=== PATIENT | female | born 1960 | race Two or more races ===

== ENCOUNTER 2020-03-19 02:52 | Emergency (ER) | payer MEDICAID, OTHER ==
[~2020-03-19] VITALS: Ht 165.1 cm; Wt 79.8 kg
[2020-03-19 03:59] LABS: Basophils # (auto) 0 10 ^3/uL (0-0.2); Basophils % (auto) 0.2 % (0.0-2.0); Eosinophils # (auto) 0 10 ^3/uL (0-0.8); Eosinophils % (auto) 0.5 % (0.0-7.0); Hematocrit 40.4 % (36.0-46.0); Hemoglobin 13.1 g/dL (12.2-16.2); Lymphocytes # (auto) 1.4 10 ^3/uL (0.4-5.4); Mean Corpuscular Hemoglobin 26.8 pg (28.0-32.0); Mean Corpuscular Hgb Conc. 32.5 g/dL (32.0-36.0); Mean Corpuscular Volume 82.4 fL (80.0-100.0); Monocytes # (auto) 0.5 10 ^3/uL (0-1.3); Monocytes % (auto) 6.2 % (0.0-12.0); Neutrophils # (auto) 6.7 10 ^3/uL (1.6-8.6); Neutrophils % (auto) 77.1 % (37.0-80.0); Nucleated Red Blood Cells % 0.1 %; Platelet Count (auto) 245 10^3/uL (140-450); Red Cell Distribution Width 13.7 % (11.8-14.3); White Blood Cell 8.7 10^3/uL (4.4-10.8)
[2020-03-19] MEDS ORDERED: levoFLOXacin 750MG 150 ML IV ONE (04:00)
[2020-03-19 04:23] LABS: Albumin 2.9 g/dL (3.4-5.0); Calcium 8.1 mg/dL (8.5-10.1); Potassium 4.2 mmol/L (3.5-5.1)
[2020-03-19 04:26] LABS: BUN/Creatinine Ratio 39.5
[2020-03-19 04:28] LABS: Bilirubin, Total 0.4 mg/dL (0.2-1.0); Total Protein 6.6 g/dL (6.4-8.2)
[2020-03-19] MEDS ORDERED: HYDROcodone-ACET 10/325MG TAB PO ONE (04:30)
[2020-03-19 06:35] VITALS: BP 128/72
== END 2020-03-19 06:33 | disposition home or self-care (01) ==
LOC: EDBD 02:52 → ER 02:52
DX: U07.1 COVID-19 (principal); J06.9 Acute upper respiratory infection, unspecified; I50.9 Heart failure, unspecified; J44.9 Chronic obstructive pulmonary disease, unspecified; E11.9 Type 2 diabetes mellitus without complications; E78.5 Hyperlipidemia, unspecified; I25.2 Old myocardial infarction; Z86.73 Personal history of transient ischemic attack (TIA), and cerebral infarction without residual deficits
CPT/HCPCS: 36415; 71045; 80053; 82728; 83605; 85025; 87040; 87070; 87804; 87880; 93005; 96365; 96366; 99285; J1956; U0003

== ENCOUNTER 2021-08-13 18:26 | Emergency (ER) | payer MEDICAID ==
[~2021-08-13] VITALS: Ht 154.9 cm; Wt 77.1 kg
[2021-08-13] MEDS ORDERED: cloNIDine HCL 0.1 MG TAB PO ONE (19:00)
[2021-08-13 22:18] VITALS: BP 151/69
[2021-08-13] MEDS ORDERED: IBUPROFEN 800 MG TAB PO ONE (22:30)
[2021-08-13] MEDS ORDERED: ACETAMINOPHEN 500 MG TAB PO ONE (22:30)
== END 2021-08-14 00:22 | disposition home or self-care (01) ==
LOC: ER 18:27
DX: S13.9XXA Sprain of joints and ligaments of unspecified parts of neck, initial encounter (principal); S33.5XXA Sprain of ligaments of lumbar spine, initial encounter; S83.92XA Sprain of unspecified site of left knee, initial encounter; S83.91XA Sprain of unspecified site of right knee, initial encounter; S73.102A Unspecified sprain of left hip, initial encounter; V43.62XA Car passenger injured in collision with other type car in traffic accident, initial encounter; Y93.89 Activity, other specified; Y92.488 Other paved roadways as the place of occurrence of the external cause; Y99.8 Other external cause status
CPT/HCPCS: 73562

== ENCOUNTER 2021-08-15 13:41 | Inpatient (IN) | payer MEDICAID ==
[~2021-08-15] VITALS: Ht 154.9 cm; Wt 91.6 kg
[2021-08-15] MEDS ORDERED: cloNIDine HCL 0.1 MG TAB PO ONE (19:30)
[2021-08-15] MEDS ORDERED: ONDANSETRON ODT 4 MG TAB PO ONE (19:30)
[2021-08-15] MEDS ORDERED: SODIUM CHLORIDE 0.9% 500 ML IV ONE (20:00)
[2021-08-15] MEDS ORDERED: SODIUM CHLORIDE 0.9% 1,000 ML IVB ONE (20:00)
[2021-08-15] MEDS ORDERED: ONDANSETRON HCL 4 MG/2 ML VIAL IV ONE (20:00)
[2021-08-15] MEDS ORDERED: HYDROmorphone HCL 2 MG/ML VL IV ONE (20:00)
[2021-08-15 22:32] LABS: Basophils # (auto) 0 10 ^3/uL (0-0.2); Eosinophils # (auto) 0 10 ^3/uL (0-0.8); Hematocrit 34.4 % (36.0-46.0); Lymphocytes # (auto) 1.4 10 ^3/uL (0.4-5.4); Mean Corpuscular Volume 80.2 fL (80.0-100.0); Neutrophils # (auto) 8.5 10 ^3/uL (1.6-8.6)
[2021-08-15 22:34] LABS: Basophils % (auto) 0.4 % (0.0-2.0); Hemoglobin 11.5 g/dL (12.2-16.2); Lymphocytes % (auto) 13.9 % (10.0-50.0); Mean Corpuscular Hemoglobin 26.9 pg (28.0-32.0); Mean Corpuscular Hgb Conc. 33.5 g/dL (32.0-36.0); Monocytes # (auto) 0.3 10 ^3/uL (0-1.3); Monocytes % (auto) 2.9 % (0.0-12.0); Neutrophils % (auto) 82.8 % (37.0-80.0); Red Blood Cells 4.29 10^6/uL (4.0-5.20); Red Cell Distribution Width 14.4 % (11.8-14.3); White Blood Cell 10.3 10^3/uL (4.4-10.8)
[2021-08-15 22:49] LABS: Albumin 2.8 g/dL (3.4-5.0); BUN/Creatinine Ratio 33.3; Calcium 8.5 mg/dL (8.5-10.1); Magnesium 2.5 mg/dL (1.6-2.6); Potassium 4.9 mmol/L (3.5-5.1)
[2021-08-15 22:52] LABS: INR 1.02 (0.9-1.15); Partial Thromboplastin Time 28.3 sec (23.6-33.0)
[2021-08-15 23:06] LABS: Bilirubin, Total 0.5 mg/dL (0.2-1.0); Total Protein 7.4 g/dL (6.4-8.2)
[2021-08-16 01:30] LABS: Urine Bacteria NONE SEEN /hpf (None Seen); Urine Blood Negative /uL (Negative); Urine Hyaline Cast MOD /lpf (0 - 2); Urine Mucus FEW (None Seen); Urine Specific Gravity 1.018 (1.001-1.035); Urine WBC 43 /hpf (0 - 5)
[2021-08-16] MEDS ORDERED: cefTRIAXone 1GM/50ML D5W 50 ML IV ONE (02:15)
[2021-08-16] MEDS ORDERED: PANTOPRAZOLE 40 MG/10 ML VIAL INJ IV ONE (02:15)
[2021-08-16] MEDS ORDERED: NIFEdipine 10 MG CAP PO ONE (06:00)
[2021-08-16] MEDS ORDERED: SODIUM CHLORIDE 0.9% 1,000 ML IV SCH (07:45)
[2021-08-16] MEDS ORDERED: NITROGLYCERIN 0.4 MG SL TAB SL PRN (07:45)
[2021-08-16] MEDS ORDERED: MORPHINE SULFATE INJECTION 2 MG/ML SYRG IV PRN (07:45)
[2021-08-16 08:41] LABS: Hematocrit 30.1 % (36.0-46.0); Hemoglobin 9.9 g/dL (12.2-16.2)
[2021-08-16] MEDS: PANTOPRAZOLE 40 MG/10 ML VIAL INJ IV SCH (10:12)
[2021-08-16] MEDS: cefTRIAXone 1GM/50ML D5W 50 ML IV SCH (10:12)
[2021-08-16] MEDS: hydrALAZINE HCL 20 MG/ML VL IV PRN (14:51)
[2021-08-16] MEDS ORDERED: LABETALOL HCL 5 MG/ML 4ML SYRINGE IV ONE (19:00)
[2021-08-16] MEDS: HYDROcodone-ACET 5/325MG TAB PO PRN (20:09)
[2021-08-16] MEDS: ONDANSETRON HCL 4 MG/2 ML VIAL IV PRN (20:49)
[2021-08-16] MEDS ORDERED: hydrALAZINE HCL 20 MG/ML VL IV ONE (22:15)
[2021-08-16] MEDS ORDERED: HYDROcodone-ACET 5/325MG TAB PO ONE (22:15)
[2021-08-16] MEDS ORDERED: PROMETHAZINE HCL 25 MG/ML 1ML IV ONE (22:30)
[2021-08-16 23:11] VITALS: BP 135/68
[2021-08-17 05:19] VITALS: BP 141/65
[2021-08-17] MEDS: ONDANSETRON HCL 4 MG/2 ML VIAL IV PRN ×3 (05:46→20:12)
[2021-08-17] MEDS: HYDROcodone-ACET 5/325MG TAB PO PRN ×3 (06:06→20:12)
[2021-08-17 07:13] LABS: Basophils # (auto) 0.1 10 ^3/uL (0-0.2); Basophils % (auto) 0.7 % (0.0-2.0); Eosinophils # (auto) 0.2 10 ^3/uL (0-0.8); Hemoglobin 9.2 g/dL (12.2-16.2); Monocytes # (auto) 0.6 10 ^3/uL (0-1.3); Monocytes % (auto) 6.9 % (0.0-12.0)
[2021-08-17 07:14] LABS: Eosinophils % (auto) 2.1 % (0.0-7.0); Hematocrit 27.7 % (36.0-46.0); Lymphocytes # (auto) 1.6 10 ^3/uL (0.4-5.4); Lymphocytes % (auto) 20.1 % (10.0-50.0); Mean Corpuscular Hemoglobin 26.4 pg (28.0-32.0); Mean Corpuscular Hgb Conc. 33.3 g/dL (32.0-36.0); Mean Corpuscular Volume 79.3 fL (80.0-100.0); Neutrophils # (auto) 5.7 10 ^3/uL (1.6-8.6); Neutrophils % (auto) 70.2 % (37.0-80.0); Red Blood Cells 3.49 10^6/uL (4.0-5.20); Red Cell Distribution Width 15.1 % (11.8-14.3); White Blood Cell 8.1 10^3/uL (4.4-10.8)
[2021-08-17 07:28] LABS: Albumin 2.2 g/dL (3.4-5.0); Calcium 7.8 mg/dL (8.5-10.1); Potassium 4.5 mmol/L (3.5-5.1)
[2021-08-17 07:32] LABS: BUN/Creatinine Ratio 30.1; Bilirubin, Total 0.4 mg/dL (0.2-1.0); Total Protein 5.4 g/dL (6.4-8.2)
[2021-08-17] MEDS: cefTRIAXone 1GM/50ML D5W 50 ML IV SCH (08:38)
[2021-08-17] MEDS: PANTOPRAZOLE 40 MG/10 ML VIAL INJ IV SCH (08:38)
[2021-08-17] MEDS: amLODIPine BESYLATE 5 MG TAB PO SCH (08:39)
[2021-08-17 09:10] VITALS: BP 155/89
[2021-08-17 14:57] VITALS: BP 156/89
[2021-08-17 16:22] VITALS: BP 149/74
[2021-08-17 22:00] VITALS: BP 156/68
[2021-08-17] MEDS ORDERED: PANT40T PO (22:16)
[2021-08-17] MEDS ORDERED: ESCI-28 PO (22:16)
[2021-08-17] MEDS ORDERED: GAB100C PO (22:16)
[2021-08-17] MEDS ORDERED: FURO40TA4 PO (22:16)
[2021-08-17] MEDS ORDERED: FLUO0.05 TOP (22:16)
[2021-08-17] MEDS ORDERED: CHOL50007 PO (22:16)
[2021-08-17] MEDS ORDERED: ASPI-437 PO (22:16)
[2021-08-17] MEDS ORDERED: TRAM50TA2 PO (22:16)
[2021-08-17] MEDS ORDERED: FERR325T20 PO (22:16)
[2021-08-17] MEDS ORDERED: ERTU15TA PO (22:16)
[2021-08-17] MEDS ORDERED: NIFE1TAB30 PO (22:16)
[2021-08-17] MEDS ORDERED: LOSA-69 PO (22:16)
[2021-08-17] MEDS ORDERED: METO-289 PO (22:16)
[2021-08-18] MEDS: HYDROcodone-ACET 5/325MG TAB PO PRN ×4 (03:08→22:34)
[2021-08-18] MEDS: ONDANSETRON HCL 4 MG/2 ML VIAL IV PRN ×3 (03:08→16:39)
[2021-08-18 05:00] VITALS: BP 171/91
[2021-08-18] MEDS: hydrALAZINE HCL 20 MG/ML VL IV PRN ×3 (05:21→22:43)
[2021-08-18] MEDS: PANTOPRAZOLE 40 MG/10 ML VIAL INJ IV SCH (07:52)
[2021-08-18] MEDS: AZITHROMYCIN 250 MG TAB PO SCH (07:53)
[2021-08-18] MEDS: amLODIPine BESYLATE 5 MG TAB PO SCH (07:53)
[2021-08-18] MEDS: cefTRIAXone 1GM/50ML D5W 50 ML IV SCH (07:54)
[2021-08-18 09:00] VITALS: BP 200/86
[2021-08-18 10:04] VITALS: BP 156/72
[2021-08-18] MEDS ORDERED: METOPROLOL SUCCINATE XL 50 MG TAB PO ONE (11:00)
[2021-08-18] MEDS ORDERED: LOSARTAN POTASSIUM 25 MG TAB PO ONE (11:00)
[2021-08-18 13:00] VITALS: BP 144/57
[2021-08-18 17:00] VITALS: BP 140/67
[2021-08-18] MEDS ORDERED: LORazepam 2MG/ML-1ML VIAL IV PRN (22:15)
[2021-08-18 23:18] LABS: Cholesterol 129 mg/dL (< 200); Triglycerides 148 mg/dL (< 150)
[2021-08-18 23:21] LABS: HDL Cholesterol 55 mg/dL (40-59); LDL Cholesterol 56 mg/dL (< 100)
[2021-08-19 00:08] VITALS: BP 153/67
[2021-08-19 04:41] VITALS: BP 153/70
[2021-08-19] MEDS: HYDROcodone-ACET 5/325MG TAB PO PRN ×2 (05:01→21:53)
[2021-08-19 07:19] LABS: Calcium 7.9 mg/dL (8.5-10.1); Potassium 4.2 mmol/L (3.5-5.1)
[2021-08-19 09:08] VITALS: BP 147/74
[2021-08-19] MEDS: cefTRIAXone 1GM/50ML D5W 50 ML IV SCH (09:55)
[2021-08-19] MEDS: ONDANSETRON HCL 4 MG/2 ML VIAL IV PRN (09:55)
[2021-08-19] MEDS: PANTOPRAZOLE 40 MG/10 ML VIAL INJ IV SCH (09:55)
[2021-08-19] MEDS: METOPROLOL SUCCINATE XL 50 MG TAB PO SCH (10:00)
[2021-08-19] MEDS: AZITHROMYCIN 250 MG TAB PO SCH (10:26)
[2021-08-19] MEDS: amLODIPine BESYLATE 5 MG TAB PO SCH (10:26)
[2021-08-19] MEDS: ASPirin-EC 81 mg tab PO SCH (10:26)
[2021-08-19] MEDS: LOSARTAN POTASSIUM 25 MG TAB PO SCH (10:26)
[2021-08-19] MEDS ORDERED: ONDANSETRON HCL 4 MG/2 ML VIAL IV ONE (12:15)
[2021-08-19 16:34] VITALS: BP 144/66
[2021-08-19] MEDS: AMITRIPTYLINE HCL 25 MG TAB PO SCH (21:52)
[2021-08-19 22:00] VITALS: BP 145/67
[2021-08-20] VITALS (7 sets, daily range): BP systolic 145–159; BP diastolic 70–76
[2021-08-20] MEDS: cefTRIAXone 1GM/50ML D5W 50 ML IV SCH (08:00)
[2021-08-20] MEDS: AZITHROMYCIN 250 MG TAB PO SCH (09:55)
[2021-08-20] MEDS: ASPirin-EC 81 mg tab PO SCH (09:56)
[2021-08-20] MEDS: METOPROLOL SUCCINATE XL 50 MG TAB PO SCH (09:56)
[2021-08-20] MEDS: PANTOPRAZOLE 40 MG/10 ML VIAL INJ IV SCH (09:57)
[2021-08-20] MEDS: LOSARTAN POTASSIUM 25 MG TAB PO SCH (09:57)
[2021-08-20] MEDS: amLODIPine BESYLATE 5 MG TAB PO SCH (09:57)
[2021-08-20] MEDS: HYDROcodone-ACET 5/325MG TAB PO PRN ×2 (09:58→19:50)
[2021-08-20] MEDS: hydrALAZINE HCL 20 MG/ML VL IV PRN (21:24)
[2021-08-20] MEDS: SUCRALFATE 1 GM/10 ML ORAL SUSP PO SCH (21:24)
[2021-08-20] MEDS: AMITRIPTYLINE HCL 25 MG TAB PO SCH (21:24)
[2021-08-21 04:22] LABS: Urine Bacteria FEW /hpf (None Seen); Urine WBC 4 /hpf (0 - 5)
[2021-08-21 05:00] VITALS: BP 144/69
[2021-08-21] MEDS: SUCRALFATE 1 GM/10 ML ORAL SUSP PO SCH ×4 (06:20→22:25)
[2021-08-21 06:30] LABS: Basophils # (auto) 0.1 10 ^3/uL (0-0.2); Basophils % (auto) 0.7 % (0.0-2.0); Eosinophils # (auto) 0.5 10 ^3/uL (0-0.8); Lymphocytes # (auto) 2.9 10 ^3/uL (0.4-5.4); Monocytes # (auto) 0.7 10 ^3/uL (0-1.3)
[2021-08-21 06:33] LABS: Eosinophils % (auto) 5.9 % (0.0-7.0); Hemoglobin 9.3 g/dL (12.2-16.2); Lymphocytes % (auto) 33.7 % (10.0-50.0); Mean Corpuscular Hemoglobin 26.7 pg (28.0-32.0); Mean Corpuscular Hgb Conc. 33.4 g/dL (32.0-36.0); Mean Corpuscular Volume 80.2 fL (80.0-100.0); Monocytes % (auto) 8.2 % (0.0-12.0); Neutrophils # (auto) 4.4 10 ^3/uL (1.6-8.6); Neutrophils % (auto) 51.5 % (37.0-80.0); Red Blood Cells 3.49 10^6/uL (4.0-5.20); Red Cell Distribution Width 14.6 % (11.8-14.3); White Blood Cell 8.5 10^3/uL (4.4-10.8)
[2021-08-21 07:04] LABS: Potassium 4.5 mmol/L (3.5-5.1)
[2021-08-21 07:11] LABS: BUN/Creatinine Ratio 26.4; Calcium 7.9 mg/dL (8.5-10.1)
[2021-08-21] MEDS: ONDANSETRON HCL 4 MG/2 ML VIAL IV PRN (08:48)
[2021-08-21 09:31] VITALS: BP 147/60
[2021-08-21] MEDS: cefTRIAXone 1GM/50ML D5W 50 ML IV SCH (10:40)
[2021-08-21] MEDS: PANTOPRAZOLE 40 MG/10 ML VIAL INJ IV SCH (10:41)
[2021-08-21] MEDS: ASPirin-EC 81 mg tab PO SCH (10:41)
[2021-08-21] MEDS: amLODIPine BESYLATE 5 MG TAB PO SCH (10:41)
[2021-08-21] MEDS: METOPROLOL SUCCINATE XL 50 MG TAB PO SCH (10:42)
[2021-08-21] MEDS: AZITHROMYCIN 250 MG TAB PO SCH (10:42)
[2021-08-21] MEDS: LOSARTAN POTASSIUM 25 MG TAB PO SCH (10:43)
[2021-08-21 15:35] VITALS: BP 139/82
[2021-08-21] MEDS: HYDROcodone-ACET 5/325MG TAB PO PRN (16:57)
[2021-08-21 17:10] VITALS: BP 133/85
[2021-08-21 20:00] VITALS: BP 139/75
[2021-08-21] MEDS: AMITRIPTYLINE HCL 25 MG TAB PO SCH (22:25)
[2021-08-22 04:20] VITALS: BP 165/81
[2021-08-22] MEDS: SUCRALFATE 1 GM/10 ML ORAL SUSP PO SCH ×4 (06:34→21:56)
[2021-08-22] MEDS: hydrALAZINE HCL 20 MG/ML VL IV PRN ×2 (06:35→06:53)
[2021-08-22 08:42] VITALS: BP 130/74
[2021-08-22] MEDS: ONDANSETRON HCL 4 MG/2 ML VIAL IV PRN (08:47)
[2021-08-22] MEDS: cefTRIAXone 1GM/50ML D5W 50 ML IV SCH (09:38)
[2021-08-22] MEDS: PANTOPRAZOLE 40 MG/10 ML VIAL INJ IV SCH (10:16)
[2021-08-22] MEDS: LOSARTAN POTASSIUM 25 MG TAB PO SCH (10:17)
[2021-08-22] MEDS: amLODIPine BESYLATE 5 MG TAB PO SCH (10:17)
[2021-08-22] MEDS: ASPirin-EC 81 mg tab PO SCH (10:17)
[2021-08-22] MEDS: AZITHROMYCIN 250 MG TAB PO SCH (10:18)
[2021-08-22] MEDS: METOPROLOL SUCCINATE XL 50 MG TAB PO SCH (10:18)
[2021-08-22 12:56] VITALS: BP 124/56
[2021-08-22 16:57] VITALS: BP 120/52
[2021-08-22] MEDS: HYDROcodone-ACET 5/325MG TAB PO PRN (20:16)
[2021-08-22 22:00] VITALS: BP 164/72
[2021-08-22 23:24] VITALS: BP 141/72
[2021-08-23 05:00] VITALS: BP 165/74
[2021-08-23] MEDS: hydrALAZINE HCL 20 MG/ML VL IV PRN (05:47)
[2021-08-23] MEDS: SUCRALFATE 1 GM/10 ML ORAL SUSP PO SCH ×4 (07:11→21:44)
[2021-08-23 08:12] LABS: INR 0.97 (0.9-1.15); Partial Thromboplastin Time 28.4 sec (23.6-33.0)
[2021-08-23] MEDS: ONDANSETRON HCL 4 MG/2 ML VIAL IV PRN (08:40)
[2021-08-23] MEDS: HYDROcodone-ACET 5/325MG TAB PO PRN (08:40)
[2021-08-23 09:00] VITALS: BP 157/83
[2021-08-23] MEDS ORDERED: LIDOCAINE VISCOUS 2% 15ML UD ONE (10:15)
[2021-08-23] MEDS: cefTRIAXone 1GM/50ML D5W 50 ML IV SCH (10:27)
[2021-08-23] MEDS: PANTOPRAZOLE 40 MG/10 ML VIAL INJ IV SCH (10:27)
[2021-08-23] MEDS: LOSARTAN POTASSIUM 25 MG TAB PO SCH (10:28)
[2021-08-23] MEDS: ASPirin-EC 81 mg tab PO SCH (10:29)
[2021-08-23] MEDS: amLODIPine BESYLATE 5 MG TAB PO SCH (10:29)
[2021-08-23] MEDS: METOPROLOL SUCCINATE XL 50 MG TAB PO SCH (10:30)
[2021-08-23] MEDS: AZITHROMYCIN 250 MG TAB PO SCH (10:30)
[2021-08-23 13:00] VITALS: BP 150/75
[2021-08-23] MEDS: fentaNYL CITRATE 100 MCG/2 ML VL ONE ×2 (16:17→16:20)
[2021-08-23] MEDS: MIDAZOLAM HCL 5 MG/ML-1ML VIAL ONE ×2 (16:17→16:20)
[2021-08-23] MEDS: diphenhdrAMINE HCL 50 MG/1 ML VL ONE ×2 (16:17→16:20)
[2021-08-23 22:00] VITALS: BP 145/79
[2021-08-24 05:00] VITALS: BP 160/70
[2021-08-24 05:59] VITALS: BP 145/73
[2021-08-24] MEDS: SUCRALFATE 1 GM/10 ML ORAL SUSP PO SCH ×2 (06:03→12:01)
[2021-08-24] MEDS: HYDROcodone-ACET 5/325MG TAB PO PRN (06:04)
[2021-08-24] MEDS: ONDANSETRON HCL 4 MG/2 ML VIAL IV PRN (08:26)
[2021-08-24 08:36] VITALS: BP 164/76
[2021-08-24] MEDS: cefTRIAXone 1GM/50ML D5W 50 ML IV SCH (09:53)
[2021-08-24] MEDS: PANTOPRAZOLE 40 MG/10 ML VIAL INJ IV SCH (09:54)
[2021-08-24] MEDS: LOSARTAN POTASSIUM 25 MG TAB PO SCH (09:55)
[2021-08-24] MEDS: ASPirin-EC 81 mg tab PO SCH (09:55)
[2021-08-24] MEDS: AZITHROMYCIN 250 MG TAB PO SCH (09:56)
[2021-08-24] MEDS: METOPROLOL SUCCINATE XL 50 MG TAB PO SCH (09:56)
[2021-08-24] MEDS: amLODIPine BESYLATE 5 MG TAB PO SCH (09:56)
[2021-08-24] MEDS ORDERED: LOSA-69 PO (10:58)
[2021-08-24] MEDS ORDERED: NIFE1TAB30 PO (10:58)
[2021-08-24] MEDS ORDERED: METO-289 PO (10:58)
[2021-08-24 12:52] VITALS: BP 139/64
[2021-08-24 17:00] VITALS: BP 154/75
== END 2021-08-24 17:55 | disposition home or self-care (01) | DRG 199 ==
LOC: EDBD 13:41 → ER 13:41 → EDUNIT# 13:41 → TELE 08-16 07:33 → TELE-CENTR 08-16 22:48 → CENTRAL 08-20 11:37
PROVIDERS: ADMIT Nurse Practitioner; ATTEND Internal Medicine Nephrology
PROC: 0DB88ZX Excision of Small Intestine, Via Natural or Artificial Opening Endoscopic, Diagnostic (ICD-10-PCS; 2021-08-23)
PROC: 0DB68ZX Excision of Stomach, Via Natural or Artificial Opening Endoscopic, Diagnostic (ICD-10-PCS; principal; 2021-08-23 16:12)
DX: I16.1 Hypertensive emergency (principal); I67.83 Posterior reversible encephalopathy syndrome; N17.9 Acute kidney failure, unspecified; I67.4 Hypertensive encephalopathy; K25.4 Chronic or unspecified gastric ulcer with hemorrhage; D62 Acute posthemorrhagic anemia; N39.0 Urinary tract infection, site not specified; E66.9 Obesity, unspecified; E11.9 Type 2 diabetes mellitus without complications; S83.91XA Sprain of unspecified site of right knee, initial encounter; S83.92XA Sprain of unspecified site of left knee, initial encounter; E78.00 Pure hypercholesterolemia, unspecified; E78.5 Hyperlipidemia, unspecified; I25.10 Atherosclerotic heart disease of native coronary artery without angina pectoris; F17.200 Nicotine dependence, unspecified, uncomplicated; I50.9 Heart failure, unspecified; J44.9 Chronic obstructive pulmonary disease, unspecified; S20.211A Contusion of right front wall of thorax, initial encounter; Z20.822 Contact with and (suspected) exposure to COVID-19; I25.2 Old myocardial infarction; Z79.82 Long term (current) use of aspirin; Z79.899 Other long term (current) drug therapy; Z82.49 Family history of ischemic heart disease and other diseases of the circulatory system; Z91.14 Patient's other noncompliance with medication regimen; Z83.3 Family history of diabetes mellitus; Z86.73 Personal history of transient ischemic attack (TIA), and cerebral infarction without residual deficits; Z68.38 Body mass index [BMI] 38.0-38.9, adult; V89.2XXA Person injured in unspecified motor-vehicle accident, traffic, initial encounter; Y93.89 Activity, other specified; Y92.89 Other specified places as the place of occurrence of the external cause; Y99.8 Other external cause status
CPT/HCPCS: 36415; 43239; 70450; 70551; 71045; 71250; 72125; 74176; 76705; 80048; 80053; 80061; 81001; 81015; 82150; 83690; 83735; 84443; 84484; 85014; 85018; 85025; 85610; 85730; 86850; 86900; 86901; 87081; 87086; 87426; 93005; 96365; 96375; C9113; G0378; J0696; J2250; J2405; J3490; Q0162